=== PATIENT | female | born 1945 | race Caucasian/White ===

== ENCOUNTER → 2017-06-21 | Outpatient (CLI) | payer MEDICARE ==
[~2017-06-21] MED LIST: ALBU90OI INH; AMIO200; ASCO500 PO; ASPI325; ATENOLOL; AZIT250 PO; DIPATR PO; FISH1000 PO; FLAX PO; FLEC50 PO; FURO20 PO; LEVSOD50 PO; LISI20 PO; LOPE2C PO; MULVITMINF PO; OMEP20ER; POTCHL20ER; Prednisone20 MG PO; THYR60; VIT; [UNRECOGNIZED DRUG - OTHER]; [UNRECOGNIZED DRUG - OTHER]; [UNRECOGNIZED DRUG - REMARK]
== END | disposition home or self-care (01) ==
LOC: PLD 12:03 → LAB SHORT 12:03
DX: D17.39 Benign lipomatous neoplasm of skin and subcutaneous tissue of other sites (principal)
CPT/HCPCS: 88304

== ENCOUNTER → 2017-08-14 | Outpatient (CLI) | payer MEDICARE ==
[2017-08-14 13:41] LABS: BASOPHILS ABSOLUTE AUTO 0.01 K/mm3 (0.00-0.23); BASOPHILS PERCENT AUTO 0 % (0-2); EOSINOPHILS ABSOLUTE AUTO 0.13 K/mm3 (0.00-0.68); EOSINOPHILS PERCENT AUTO 3 % (0-6); Hematocrit 43.4 % (33.0-51.0); Hemoglobin 14.6 g/dL (11.5-16.0); IMMATURE GRAN ABSOLUTE AUTO 0.02 K/mm3 (0.00-0.10); IMMATURE GRAN PERCENT AUTO 0 % (0-1); LYMPHOCYTES ABSOLUTE AUTO 0.67 K/mm3 (0.84-5.20); LYMPHOCYTES PERCENT AUTO 14 % (21-46); MONOCYTES ABSOLUTE AUTO 0.55 K/mm3 (0.16-1.47); MONOCYTES PERCENT AUTO 11 % (4-13); Mean Corpuscular HGB 29.6 pg (26.0-34.0); Mean Corpuscular HGB Conc 33.6 g/dL (31.5-36.5); Mean Corpuscular Volume 88 fL (80-100); Mean Platelet Volume 9.1 fL (9.1-12.4); NEUTROPHILS PERCENT AUTO 72 % (41-73); Platelet Count 209 K/mm3 (150-400); RDW Coefficient Variation 13.7 % (11.7-14.2); RDW Standard Deviation 43.7 fL (35.1-46.3); Red Blood Cell Count 4.94 M/mm3 (3.80-5.20); White Blood Cell Count 4.98 K/mm3 (4.00-11.30)
[2017-08-14 13:58] LABS: Alanine Aminotransfer (ALT/SGP 39 U/L (12-78); Albumin/Globulin Ratio 1.3 (0.8-1.8); Alk Phos 54 U/L (40-126); Anion Gap 8 mmol/L (6-16); Aspartate Aminotrans (AST/SGOT 24 U/L (12-37); Bilirubin, Total 0.6 mg/dL (0.1-1.0); Blood Urea Nitrogen 18 mg/dL (8-24); Bun/Creatinine Ratio 18.4 (12.0-20.0); CO2, Blood 28 mmol/L (21-32); Chloride, Blood 101 mmol/L (98-108); Creatinine, Blood 0.98 mg/dL (0.40-1.00); Globulin, Blood 3.2 g/dL (2.2-4.0); Glomerular Filtration Rate 55 (60-); Glucose, Blood 101 mg/dL (70-99); Potassium, Blood 3.9 mmol/L (3.5-5.5); Sodium, Blood 137 mmol/L (136-145); Total Protein, Blood 7.2 g/dL (6.4-8.2); Troponin I <0.017 ng/mL (0.000-0.040)
== END | disposition home or self-care (01) ==
LOC: LAB EV 13:37 → LAB SHORT 13:37
PROVIDERS: Physician Assistant
DX: R06.00 Dyspnea, unspecified (principal)
CPT/HCPCS: 80053; 83880; 84484; 85025

== ENCOUNTER 2022-03-12 23:23 | Emergency (ER) | payer MEDICARE ==
[~2022-03-12] VITALS: Ht 167.6 cm; Wt 97.1 kg
[~2022-03-12 23:23] MED LIST changes: +CLIN150 PO; +COQ1050 MG PO; +ERGO400 PO; +FISH OIL PO; +HYDCHL25 PO; +LOSA50 PO; +OXYC5 PO; +Promethazine12.5 M1 PO; +SULTRIDS PO; +Vitamin C100 M1 PO
[2022-03-13 00:07] LABS: BASOPHILS ABSOLUTE AUTO 0.02 K/mm3 (0.00-0.23); BASOPHILS PERCENT AUTO 0 % (0-2); EOSINOPHILS ABSOLUTE AUTO 0.07 K/mm3 (0.00-0.68); EOSINOPHILS PERCENT AUTO 1 % (0-6); Hematocrit 37.1 % (33.0-51.0); Hemoglobin 12.7 g/dL (11.5-16.0); IMMATURE GRAN ABSOLUTE AUTO 0.03 K/mm3 (0.00-0.10); IMMATURE GRAN PERCENT AUTO 0 % (0-1); LYMPHOCYTES PERCENT AUTO 17 % (21-46); MONOCYTES ABSOLUTE AUTO 0.61 K/mm3 (0.16-1.47); MONOCYTES PERCENT AUTO 7 % (4-13); Mean Corpuscular HGB 29.5 pg (26.0-34.0); Mean Corpuscular HGB Conc 34.2 g/dL (31.5-36.5); Mean Corpuscular Volume 86 fL (80-100); Mean Platelet Volume 9.1 fL (9.1-12.4); NEUTROPHILS ABSOLUTE AUTO 6.29 K/mm3 (1.96-9.15); NEUTROPHILS PERCENT AUTO 75 % (41-73); Platelet Count 265 K/mm3 (150-400); RDW Coefficient Variation 13.6 % (11.7-14.2); RDW Standard Deviation 42.5 fL (35.1-46.3); White Blood Cell Count 8.42 K/mm3 (4.00-11.30)
[2022-03-13 00:18] LABS: Albumin, Blood 3.2 g/dL (3.4-5.0); Albumin/Globulin Ratio 1.1 (0.8-1.8); Bilirubin, Total 0.4 mg/dL (0.1-1.0); Bun/Creatinine Ratio 17.9 (12.0-20.0); Creatinine, Blood 0.9 mg/dL (0.40-1.00); Globulin, Blood 2.8 g/dL (2.2-4.0); Magnesium, Blood 2.2 mg/dL (1.6-2.4); Potassium, Blood 3.7 mmol/L (3.5-5.5)
== END 2022-03-13 00:49 | disposition left against medical advice (07) ==
LOC: ER 23:23
PROVIDERS: Emergency Medicine
DX: R07.89 Other chest pain (principal); Z53.21 Procedure and treatment not carried out due to patient leaving prior to being seen by health care provider; I48.91 Unspecified atrial fibrillation; E03.9 Hypothyroidism, unspecified; I10 Essential (primary) hypertension; Z88.0 Allergy status to penicillin; Z91.018 Allergy to other foods; Z79.899 Other long term (current) drug therapy
CPT/HCPCS: 80053; 83690; 83735; 83880; 84484; 85025; 93005; 93010

== ENCOUNTER 2022-09-07 09:12 | Day surgery (SDC) | payer MEDICARE ==
[2022-09-07] VITALS (9 sets, daily range): BP systolic 108–148; BP diastolic 51–98
[~2022-09-07] VITALS: Ht 167.6 cm; Wt 92.1 kg
[~2022-09-07 09:12] MED LIST changes: +EUTHYROX50 MCG PO; +HYDCHL12.5 PO; -HYDCHL25 PO; -LEVSOD50 PO; +MAGNESIUM CITR125 MG PO
--- NOTE | 2022-09-07 09:30 | NUR ---
Into sds via wheelchair. History, Chart, Medications and Allergies reviewed before start of procedure.Lungs clear T/O to Auscultation. Patient confirms NPO status and agrees with scheduled surgery. Patient reports completing Chlorhexadine shower X2 prior to admission to hospital.
--- NOTE | 2022-09-07 11:31 | NUR ---
09/07/22 1131 Carin Fisher VANCOMYCIN 1GM GIVEN IN PREOP BEFORE COMING BACK TO OR
--- NOTE | 2022-09-07 14:28 | NUR ---
PATIENT CAME BACK FROM PACU TODAY AT 1400. POD 0 RIGHT TKA PATIENT IS A&OX4. VS ARE WNL AND IS ON RA. PATIENT HAD A SPINAL DURING PROCEDURE AND REPORTS TINGLING FROM THE WAIST DOWN BUT STATES "I CAN FEEL MORE IN MY KNEE". SHE IS ABLE TO WIGGLE ALL FINGERS AND TOES WHEN ASKED. SHE IS TOLERATING PO INTAKE AT THIS TIME. HER RIGHT KNEE HAS JENA WRAP AND POLAR PACK IN PLACE THAT IS C/D/I. FAMILY IS AT BEDSIDE. PATIENT IS LAYING IN BED WITH CALL LIGHT IN REACH.
[2022-09-07] MEDS ORDERED: LOW DOSE ASPIRI81 M1 PO (14:38)
--- NOTE | 2022-09-07 15:42 | NUR ---
SHIFT SUMMARY: POD 0 RIGHT TKA PATIENT IS A&OX4. VS ARE WNL AND IS ON RA. PATIENTS SPINAL FROM DURING THE PROCEDURE HAS WORN OFF AND PAIN HAS BEEN MANAGED WITH PO TYLENOL AND 2 OXY SO FAR. HER RIGHT KNEE HAS AN JENA WRAP THAT IS C/D/I. DENIES NUMBNESS OR TINGLING. CAN MOVE ALL FINGERS AND TOES. SHE IS A SBA WITH FWW AND GAIT BELT. PATIENT WAS ABLE TO AMBULATE IN THE HALLWAY AND BACK TO HER RECLINER. SHE IS TOLERATING PO INTAKE. AWAITING FOR POST OP VOID- SHE WAS JUST BLADDER SCANNED WITH 335 ML. SHE TRIED SITTING ON THE TOLIET BUT REPORTED "I DON'T FEEL THE NEED TO PEE JUST YET". WILL CONTINUE TO MONITOR WITH BLADDER SCANNING NEEDED UNLESS PATIENT HAS THE URGE TO VOID. SHE IS SITTING IN THE RECLINER WITH FEET UP AND POLAR PACK IN PLACE. CALL LIGHT WITHIN REACH.
--- NOTE | 2022-09-07 17:12 | NUR ---
Pt. is awake in bed and welcomes my visit. Pt. is pleasant and displays evidence of being focused on her recovery. Facilitate a brief life review, and establish rapport. Other family members arrive and I keep my visit brief. Prayed with Pt. Pt. verbalized gratitude for the spiritual care visit.
--- NOTE | 2022-09-07 23:35 | NUR ---
REPORT GIVEN TO MARTIN DE LOS SANTOS TO ASSUME CARE OF PT AT THIS TIME. PT HAS AMBULATED IN THE HALLS, AND GONE TO THE BATHROOM AND IS ASSISTED BACK TO BED BY CHANGEOVER OPERATORMAGALI SALAZAR. PT DENIES ANY NEEDS AT THIS TIME.
--- NOTE | 2022-09-08 02:10 | NUR ---
ASSUMED CARE OF PT AT 2336 ASSISTED PT BACK TO BED AFTER BRP.KEEPING POLAR PACK ON AT ALL TIMES WHILE IN BED.PT IN NO DISTRESS.AMBULATORY WITH SBA. PT SLEEPING/SNORING AT THIS TIME.
[2022-09-08 03:44] VITALS: BP 111/55
[2022-09-08 03:50] LABS: BASOPHILS ABSOLUTE AUTO 0.01 K/mm3 (0.00-0.23); BASOPHILS PERCENT AUTO 0 % (0-2); EOSINOPHILS PERCENT AUTO 0 % (0-6); Hematocrit 30.8 % (33.0-51.0); Hemoglobin 10.8 g/dL (11.5-16.0); IMMATURE GRAN ABSOLUTE AUTO 0.03 K/mm3 (0.00-0.10); IMMATURE GRAN PERCENT AUTO 0 % (0-1); LYMPHOCYTES ABSOLUTE AUTO 0.47 K/mm3 (0.84-5.20); LYMPHOCYTES PERCENT AUTO 4 % (21-46); MONOCYTES ABSOLUTE AUTO 0.37 K/mm3 (0.16-1.47); MONOCYTES PERCENT AUTO 3 % (4-13); Mean Corpuscular HGB 29.5 pg (26.0-34.0); Mean Corpuscular HGB Conc 35.1 g/dL (31.5-36.5); Mean Corpuscular Volume 84 fL (80-100); NEUTROPHILS ABSOLUTE AUTO 11.05 K/mm3 (1.96-9.15); NEUTROPHILS PERCENT AUTO 93 % (41-73); Platelet Count 247 K/mm3 (150-400); RDW Coefficient Variation 11.9 % (11.7-14.2); RDW Standard Deviation 36.5 fL (35.1-46.3); Red Blood Cell Count 3.66 M/mm3 (3.80-5.20); White Blood Cell Count 11.93 K/mm3 (4.00-11.30)
[2022-09-08 05:47] LABS: Bun/Creatinine Ratio 19.7 (12.0-20.0); Calcium, Blood 8.8 mg/dL (8.5-10.1); Creatinine, Blood 0.86 mg/dL (0.40-1.00); Potassium, Blood 4.5 mmol/L (3.5-5.5)
--- NOTE | 2022-09-08 07:43 | NUR ---
SUMMARY PT UP IN [facility].VOIDING AND TOLERATING PO.DR LOMELI HERE.PT PLANS FOR DISCHARGE TODAY.
[2022-09-08 07:48] VITALS: BP 116/58
[2022-09-08] MEDS ORDERED: OXAYDO5 M1 PO (08:40)
[2022-09-08] MEDS ORDERED: PROM25 PO (08:41)
--- NOTE | 2022-09-08 09:27 | NUR ---
5851 DISCHARGED TO HOME WITH DAUGHTER, DENIES PAIN. RIGHT AQUACEL DRY AND INTACT. PT DENIES PAIN. VOIDING AND BECCA PO. UP IN ROOM WITH STANDBY ASSIST
== END 2022-09-08 09:35 | disposition home or self-care (01) ==
LOC: ORSCMMR 09:12 → ORD 11:00 → ORSCMMR 11:00 → SURS 13:59 → ORSCMMR 09-08 09:35
PROVIDERS: Orthopaedic Surgery
PROC: 0SRC0J9 Replacement of Right Knee Joint with Synthetic Substitute, Cemented, Open Approach (ICD-10-PCS; principal; 2022-09-07 11:00)
DX: M17.0 Bilateral primary osteoarthritis of knee (principal); Z96.611 Presence of right artificial shoulder joint; I10 Essential (primary) hypertension; I48.91 Unspecified atrial fibrillation; E78.00 Pure hypercholesterolemia, unspecified; F32.A Depression, unspecified; Z79.899 Other long term (current) drug therapy
CPT/HCPCS: 36415; 73560-RT; 80048; 83735; 85025; 97110; 97116; 97162; A9270; C1713; C1776; J0171; J0690; J0735; J1885; J2704; J2795; J3010; J3370; J7120

== ENCOUNTER 2023-06-07 06:07 | Day surgery (SDC) | payer MEDICARE ==
[~2023-06-07] VITALS: Ht 167.6 cm; Wt 94.9 kg
[2023-06-07] VITALS (15 sets, daily range): BP systolic 118–160; BP diastolic 68–93
[~2023-06-07 06:07] MED LIST changes: +LOW DOSE ASPIRI81 M1 PO; +OXAYDO5 M1 PO; +PROM25 PO
--- NOTE | 2023-06-07 07:38 | NUR ---
Ambulatory in Day Surgery Patient confirms NPO status and agrees with scheduled surgery. History, Chart, Medications and Allergies reviewed before start of procedure.Pre-Op teaching done. Pt verbalizes understanding.
--- NOTE | 2023-06-07 08:34 | NUR ---
06/07/23 0834 Carin Fisher SPINAL NERVE BLOCK COMPLETED BY DR. MEDEL UPON ENTRY TO OR. PT TOLERATED WELL.
--- NOTE | 2023-06-07 11:04 | NUR ---
PATIENT JUST ARRIVED FROM PACU. POD 0 LEFT TOTAL KNEE PATIENT IS A&OX4. PATIENT DID HAVE A SPINAL BUT SHE DENIES NUMBNESS OR TINGLING THROUGHOUT ALL EXTREMITIES. SHE IS ABLE TO MOVE ALL FINGERS AND TOES WHEN ASKED. SHE WAS EVEN ABLE TO LIFT BOTH LEGS OFF THE BED WHEN ASKED. PATIENT REPORTS "I HAVE SOME PAIN IN THE LEFT KNEE". HER LEFT KNEE HAS AN JENA WRAP THAT IS C/D/I. SHE IS TOLERATING SMALL AMOUNTS OF PO INTAKE. SHE IS CURRENTLY LAYING IN BED WITH CALL LIGHT IN REACH AND DAUGHTER AT BEDSIDE.
--- NOTE | 2023-06-07 14:38 | NUR ---
Pt. is sitting on a recliner and welcomes my visit. Pts. daughter and ALVARADO are at bedside. Facilitated a life review, and considered matters of family and carroll. Prayed displayed evidence of awareness, engagement, and a pleasant optimism regarding her recovery. Prayed with Pt. Pt. and family verbalize gratitude for the spiritual care visit.
--- NOTE | 2023-06-07 15:25 | NUR ---
SHIFT SUMMARY: POD 0 LEFT TOTAL KNEE PATIENT IS A&OX4. VS ARE WNL AND IS ON RA. PAIN IS MANAGED WITH PO OXY, TYELNOL, AND IV TORADOL. HER LEFT KNEE HAS AN JENA WRAP THAT IS C/D/I. SHE DENIES NUMBNESS OR TINGLING IN ALL EXTREMITIES. SHE IS A SBA WITH FWW AND GAIT BELT. PATIENT IS TOLERATING PO INTAKE. PATIENT DID WORK WITH PHYSICAL THERAPY EARLIER TODAY WELL. PATIENT IS CURRENTLY LAYING BACK IN HER RECLINER CHAIR WITH POLAR PACK IN PLACE AND CALL LIGHT WITHIN REACH. PATIENT CALLS APPROPRIATELY. DAUGHTER IS AT BEDSIDE.
[2023-06-08 04:03] VITALS: BP 139/72
[2023-06-08 05:23] LABS: BASOPHILS ABSOLUTE AUTO 0.01 K/mm3 (0.00-0.23); BASOPHILS PERCENT AUTO 0 % (0-2); EOSINOPHILS PERCENT AUTO 0 % (0-6); Hemoglobin 11.3 g/dL (11.5-16.0); IMMATURE GRAN ABSOLUTE AUTO 0.04 K/mm3 (0.00-0.10); IMMATURE GRAN PERCENT AUTO 0 % (0-1); LYMPHOCYTES ABSOLUTE AUTO 0.57 K/mm3 (0.84-5.20); LYMPHOCYTES PERCENT AUTO 5 % (21-46); MONOCYTES ABSOLUTE AUTO 0.66 K/mm3 (0.16-1.47); MONOCYTES PERCENT AUTO 5 % (4-13); Mean Corpuscular HGB 29.4 pg (26.0-34.0); Mean Corpuscular HGB Conc 34.2 g/dL (31.5-36.5); Mean Corpuscular Volume 86 fL (80-100); Mean Platelet Volume 9.1 fL (9.1-12.4); NEUTROPHILS ABSOLUTE AUTO 11.41 K/mm3 (1.96-9.15); NEUTROPHILS PERCENT AUTO 90 % (41-73); Platelet Count 242 K/mm3 (150-400); RDW Coefficient Variation 12.7 % (11.7-14.2); RDW Standard Deviation 39.6 fL (35.1-46.3); Red Blood Cell Count 3.84 M/mm3 (3.80-5.20); White Blood Cell Count 12.69 K/mm3 (4.00-11.30)
[2023-06-08 05:49] LABS: Calcium, Blood 8.8 mg/dL (8.5-10.1); Magnesium, Blood 2.1 mg/dL (1.6-2.4); Potassium, Blood 4.7 mmol/L (3.5-5.5)
[2023-06-08 07:23] VITALS: BP 146/73
--- NOTE | 2023-06-08 07:23 | NUR ---
SHIFT SUMMARY PT IS POD#1 FOR A LEFT TOTAL KNEE REPLACEMENT. PT DID WELL THIS SHIFT, AMBULATING TO THE BATHROOM WITH A WALKER. NO ACUTE EVENTS OCCURRED OVERNIGHT, VITAL SIGNS HAVE BEEN STABLE. BED IS IN LOWEST POSITION, CALL LIGHT IS WITHIN REACH.
--- NOTE | 2023-06-08 09:38 | NUR ---
Spiritual Care Visit Pt has been discharged and is awaiting her ride. Pt. is pleasant and verbalizes gratitude for the medical and spiritual care she has recieved during her hospital stay. Nurse came to take her to her car. Pt. verbalized once again her gratitude for the spiritual care support during her stay.
--- NOTE | 2023-06-08 11:07 | NUR ---
DISCHARGE SUMMARY POD1 L TKA, A/OX4, VSS, TOLERATING PO, AMBULATING WITH MINIMAL SBA, PAIN WELL MANAGED, NEW DRESSING PLACED AT THE BEDSIDE BY ORTHO, SHE WAS PROVIDED ADDITIONAL DRESSINGS TO GO HOME WITH INCLUDING INSTRUCTIONS FOR DAILY DRESSING CHANGES RELATED TO HER SKIN TEAR JUST BELOW THE INCISION. DISCUSSED DISCHARGE INFORMATION WITH HER INCLUDING HOME CARE, MEDICATIONS, AND FOLLOW UP APPOINTMENTS, NO QUESTIONS AT THIS TIME, PT ESCORTED OUT VIA WC TO [employer]IVATE AUT[employer] TO GO HOME.
== END 2023-06-08 09:48 | disposition home or self-care (01) ==
LOC: ORSCMMR 06:07 → ORD 07:30 → ORSCMMR 07:30 → SURS 10:40 → ORSCMMR 06-08 09:48
PROVIDERS: Orthopaedic Surgery
PROC: 0SRD0J9 Replacement of Left Knee Joint with Synthetic Substitute, Cemented, Open Approach (ICD-10-PCS; principal; 2023-06-07 07:30)
DX: M17.12 Unilateral primary osteoarthritis, left knee (principal); Z96.611 Presence of right artificial shoulder joint; Z96.651 Presence of right artificial knee joint; I10 Essential (primary) hypertension; I48.91 Unspecified atrial fibrillation; K21.9 Gastro-esophageal reflux disease without esophagitis; E78.00 Pure hypercholesterolemia, unspecified; E66.9 Obesity, unspecified; Z68.34 Body mass index [BMI] 34.0-34.9, adult; F32.A Depression, unspecified; Z79.899 Other long term (current) drug therapy
CPT/HCPCS: 36415; 73560-LT; 80048; 83735; 85025; 97110; 97116; 97162; 97530; A9270; C1713; C1776; J0171; J0690; J0735; J1885; J2371; J2405; J2704; J2765; J2795; J3010; J3370; J7120

== ENCOUNTER → 2024-08-03 | Outpatient (CLI) | payer MEDICARE ==
[~2024-08-03] MED LIST changes: +MECL25 PO
[2024-08-03 11:46] LABS: BASOPHILS ABSOLUTE AUTO 0.02 K/mm3 (0.00-0.23); BASOPHILS PERCENT AUTO 0 % (0-2); EOSINOPHILS PERCENT AUTO 2 % (0-6); Hematocrit 38.2 % (33.0-51.0); Hemoglobin 12.8 g/dL (11.5-16.0); IMMATURE GRAN ABSOLUTE AUTO 0.01 K/mm3 (0.00-0.10); IMMATURE GRAN PERCENT AUTO 0 % (0-1); LYMPHOCYTES ABSOLUTE AUTO 0.84 K/mm3 (0.84-5.20); LYMPHOCYTES PERCENT AUTO 14 % (21-46); MONOCYTES ABSOLUTE AUTO 0.37 K/mm3 (0.16-1.47); MONOCYTES PERCENT AUTO 6 % (4-13); Mean Corpuscular HGB 29.4 pg (26.0-34.0); Mean Corpuscular HGB Conc 33.5 g/dL (31.5-36.5); Mean Corpuscular Volume 88 fL (80-100); Mean Platelet Volume 8.8 fL (9.1-12.4); NEUTROPHILS ABSOLUTE AUTO 4.56 K/mm3 (1.96-9.15); NEUTROPHILS PERCENT AUTO 77 % (41-73); Platelet Count 240 K/mm3 (150-400); RDW Coefficient Variation 13.2 % (11.7-14.2); RDW Standard Deviation 42.4 fL (35.1-46.3); Red Blood Cell Count 4.35 M/mm3 (3.80-5.20)
[2024-08-03 11:53] LABS: Albumin, Blood 3.8 g/dL (3.4-5.0); Albumin/Globulin Ratio 1.2 (0.8-1.8); Bilirubin, Total 0.7 mg/dL (0.1-1.0); Bun/Creatinine Ratio 19.7 (12.0-20.0); Calcium, Blood 9.9 mg/dL (8.5-10.1); Creatinine, Blood 0.76 mg/dL (0.40-1.00); Globulin, Blood 3.2 g/dL (2.2-4.0); Potassium, Blood 4.4 mmol/L (3.5-5.5)
== END | disposition home or self-care (01) ==
LOC: LAB SHORT 11:37 → LAB 11:37
PROVIDERS: Emergency Medicine
DX: I10 Essential (primary) hypertension (principal)
CPT/HCPCS: 80053; 85025

== ENCOUNTER 2024-08-13 12:44 | Observation (INO) | payer MEDICARE ==
[~2024-08-13] VITALS: Ht 167.6 cm; Wt 94.8 kg
[2024-08-13 13:47] LABS: BASOPHILS ABSOLUTE AUTO 0.01 K/mm3 (0.00-0.23); BASOPHILS PERCENT AUTO 0 % (0-2); EOSINOPHILS ABSOLUTE AUTO 0.02 K/mm3 (0.00-0.68); EOSINOPHILS PERCENT AUTO 1 % (0-6); Hematocrit 39.5 % (33.0-51.0); Hemoglobin 13.6 g/dL (11.5-16.0); IMMATURE GRAN ABSOLUTE AUTO 0.02 K/mm3 (0.00-0.10); IMMATURE GRAN PERCENT AUTO 1 % (0-1); LYMPHOCYTES ABSOLUTE AUTO 0.76 K/mm3 (0.84-5.20); LYMPHOCYTES PERCENT AUTO 17 % (21-46); MONOCYTES PERCENT AUTO 9 % (4-13); Mean Corpuscular HGB 30.2 pg (26.0-34.0); Mean Corpuscular HGB Conc 34.4 g/dL (31.5-36.5); Mean Corpuscular Volume 88 fL (80-100); Mean Platelet Volume 9.6 fL (9.1-12.4); NEUTROPHILS ABSOLUTE AUTO 3.22 K/mm3 (1.96-9.15); NEUTROPHILS PERCENT AUTO 73 % (41-73); Platelet Count 233 K/mm3 (150-400); RDW Coefficient Variation 13.1 % (11.7-14.2); Red Blood Cell Count 4.51 M/mm3 (3.80-5.20); White Blood Cell Count 4.43 K/mm3 (4.00-11.30)
[2024-08-13 13:56] LABS: Albumin, Blood 3.7 g/dL (3.4-5.0); Albumin/Globulin Ratio 1.2 (0.8-1.8); Bilirubin, Total 0.6 mg/dL (0.1-1.0); Bun/Creatinine Ratio 18.7 (12.0-20.0); Calcium, Blood 9.3 mg/dL (8.5-10.1); Creatinine, Blood 0.86 mg/dL (0.40-1.00); Potassium, Blood 3.5 mmol/L (3.5-5.5); Total Protein, Blood 6.7 g/dL (6.4-8.2)
[2024-08-13] MEDS ORDERED: Aspirin 325 MG Tab PO ONE (14:10)
[2024-08-13] MEDS ORDERED: Meclizine HCl 25 MG Tab PO ONE (14:10)
[2024-08-13] MEDS ORDERED: HydrALAZINE HCl 20 MG / ML 1ML Vial IV PRN (15:30)
[2024-08-13] MEDS ORDERED: Meclizine HCl 25 MG Tab PO PRN (15:35)
[2024-08-13 15:50] LABS: CHOL/HDL RATIO 3.1; Cholesterol 213 mg/dL (50-200); HDL Cholesterol 68 mg/dL (>39); LDL/HDL RATIO 1.9; Low Density Lipoprotein Chol 128 mg/dL (0-110); Triglycerides 84 mg/dL (30-160); Very Low Density Lipoprot Chol 17 mg/dL (6-32)
[2024-08-13 17:18] VITALS: BP 187/87
[2024-08-13 20:02] VITALS: BP 166/75
[2024-08-14 00:15] VITALS: BP 111/53
--- NOTE | 2024-08-14 03:53 | NUR ---
SHIFT SUMMARY PT ALERT ORIENTED X 4 ABLE TO VERBALIZE NEEDS HER MRI OF HEASD WAS GOOD EXCEPT ATROPHY. BP SLIGHTLY ELEVATED AT 166/75. NEURO CHECKS GOOD. C/O SLIGHT DIZZINESS WHEN GETTING UP AND AMBULATING TO THE TOILET. ECHO IS PENDING. SLEPT GOOD MOST OF THE NIGHT. NO C/O PAIN. RESTING IN BED AT THIS TIME WITH CALL LIGHT IN REACH
[2024-08-14 04:20] VITALS: BP 110/65
[2024-08-14 05:18] LABS: BASOPHILS ABSOLUTE AUTO 0.01 K/mm3 (0.00-0.23); BASOPHILS PERCENT AUTO 0 % (0-2); EOSINOPHILS ABSOLUTE AUTO 0.08 K/mm3 (0.00-0.68); EOSINOPHILS PERCENT AUTO 2 % (0-6); Hematocrit 35.7 % (33.0-51.0); Hemoglobin 12.3 g/dL (11.5-16.0); IMMATURE GRAN ABSOLUTE AUTO 0.01 K/mm3 (0.00-0.10); IMMATURE GRAN PERCENT AUTO 0 % (0-1); LYMPHOCYTES PERCENT AUTO 19 % (21-46); MONOCYTES ABSOLUTE AUTO 0.37 K/mm3 (0.16-1.47); MONOCYTES PERCENT AUTO 9 % (4-13); Mean Corpuscular HGB 29.9 pg (26.0-34.0); Mean Corpuscular HGB Conc 34.5 g/dL (31.5-36.5); Mean Corpuscular Volume 87 fL (80-100); NEUTROPHILS ABSOLUTE AUTO 2.86 K/mm3 (1.96-9.15); NEUTROPHILS PERCENT AUTO 69 % (41-73); Platelet Count 221 K/mm3 (150-400); RDW Coefficient Variation 13.2 % (11.7-14.2); RDW Standard Deviation 41.7 fL (35.1-46.3); Red Blood Cell Count 4.12 M/mm3 (3.80-5.20); White Blood Cell Count 4.13 K/mm3 (4.00-11.30)
[2024-08-14 05:51] LABS: Bun/Creatinine Ratio 17.3 (12.0-20.0); Calcium, Blood 8.7 mg/dL (8.5-10.1); Creatinine, Blood 0.75 mg/dL (0.40-1.00); Potassium, Blood 3.9 mmol/L (3.5-5.5); Thyroid Stimulating Hormone 0.949 uIU/mL (0.360-4.800)
[2024-08-14] MEDS ORDERED: Levothyroxine Sodium 0.05 MG Tab PO SCH (06:00)
[2024-08-14 07:50] VITALS: BP 133/72
[2024-08-14] MEDS ORDERED: Losartan Potassium 50 MG Tab PO SCH (09:00)
[2024-08-14] MEDS ORDERED: Enoxaparin 40 MG/0.4 ML SYR SC SCH (09:00)
[2024-08-14] MEDS ORDERED: Aspirin 81 MG Chew PO SCH (09:00)
[2024-08-14] MEDS ORDERED: Atorvastatin 40 MG Tab PO SCH (09:00)
[2024-08-14] MEDS ORDERED: Acetaminophen 325 MG TABLET PO PRN (09:20)
[2024-08-14] MEDS ORDERED: Losartan Potassium 25 MG Tab PO ONE (09:25)
[2024-08-14] MEDS ORDERED: ATOR20 PO (13:39)
[2024-08-14] MEDS ORDERED: MECL25 PO (13:39)
--- NOTE | 2024-08-14 14:02 | NUR ---
DISCHARGE NOTE PT D/C HOME AT 1355. PT AND PT'S DAUGHTER PROVIDED W/ VERBAL AND WRITTEN INSTRUCTIONS AND REPORED UNDERSTANDING. PT A&OX4, VSS, AMB W/ ASSIST, TOLERATING PO, VOIDING, AND DENIED PAIN. BELONGINGS WERE RETURNED AND PT ESCOURTED OUT VIA W/C BY RACHELLE MCCULLOUGH.
== END 2024-08-14 14:07 | disposition home or self-care (01) ==
LOC: ER 12:44 → ERHOLD 12:45 → MEDS 17:12
PROVIDERS: Student in an Organized Health Care Education/Training Program; ADMIT Family Medicine
DX: R42 Dizziness and giddiness (principal); R11.2 Nausea with vomiting, unspecified; I10 Essential (primary) hypertension; I48.0 Paroxysmal atrial fibrillation; E03.9 Hypothyroidism, unspecified; E78.5 Hyperlipidemia, unspecified; Z88.0 Allergy status to penicillin; Z88.2 Allergy status to sulfonamides; Z88.8 Allergy status to other drugs, medicaments and biological substances; Z79.890 Hormone replacement therapy; Z79.899 Other long term (current) drug therapy
CPT/HCPCS: 36415; 70450; 70496; 70498; 70551; 71045; 80048; 80053; 80061; 84443; 84484; 85025; 93005; 93010; 93306; 96372; 99285-25; A9270; G0378; J1650; Q9967